=== PATIENT | female | born 1970 | race Caucasian/White ===

== ENCOUNTER → 2016-07-01 | Outpatient (CLI) | payer OTHER ==
--- NOTE | 2016-07-01 14:01 | KCIC ---
PROCEDURE Bilateral digital screening mammogram. HISTORY 46-year-old female presents for screening mammography. TECHNIQUE Full field digital craniocaudal and mediolateral oblique views of both breasts are obtained. Computer-aided detection is applied. COMPARISON 10/27/2011 FINDINGS Breast parenchymal composition: Level D - Extremely dense. There is a circumscribed mass within the sellae inferior aspect of the right breast on the mediolateral oblique view likely a cyst which is more conspicuous compared to the prior study due to prior surrounding breast parenchyma. There benign-appearing calcifications within both breasts. There is no architectural distortion. IMPRESSION BI-RADS Category 0: Needs additional imaging. Further evaluation with a right breast sonogram targeted to the anterior slightly inferior breast to assess a circumscribed density most suggestive of a cyst is recommended. This is likely more conspicuous compared to the prior study due to prior surrounding breast parenchyma. The patient will be contacted to return for additional imaging. Mammography is not 100% sensitive in detecting breast cancer. Therefore, a self breast exam and a clinical breast exam are very important. A negative mammogram does not negate a clinically suspicious finding and should not result in a delay in biopsying a clinically suspicious abnormality. Electronically signed by: Daniella Gardner (Jul 01, 2016 14:00:13)
== END | disposition home or self-care (01) ==
LOC: KCIC MAMMO 12:40
PROVIDERS: ATTEND Specialist
DX: Z12.31 Encounter for screening mammogram for malignant neoplasm of breast (principal)
CPT/HCPCS: G0202; 77067

== ENCOUNTER → 2016-07-08 | Outpatient (CLI) | payer OTHER ==
--- NOTE | 2016-07-08 21:40 | KCIC ---
Right breast ultrasound: Reason for examination: Nodule on right breast ultrasound. Comparison is made to mammographic examination dated 07/01/2016. Ultrasound examination of the right breast was performed. In the 3 o'clock position 4 centimeters from the nipple, there is a 10 x 7 millimeter lesion which is well-circumscribed and shows posterior acoustic enhancement consistent with a small cyst. In the 2:30 position 5 centimeters from the nipple, there is a small hypoechoic lesion measuring 7.7 by 5.9 millimeters in size which may represent a complicated cyst. There are dilated ducts in the retroareolar position. In the 7 o'clock position 4 centimeters from the nipple, there is a small 4.5 millimeter hypoechoic lesion which has appearance with fibrocystic change. In the 10 o'clock position 6 centimeters from the nipple, there is a 6.1 millimeter hypoechoic circumscribed lesion consistent with a complicated cyst. In the 12 o'clock position 3 centimeters from the nipple, there is a 5 millimeter hypoechoic lesion with some posterior acoustic enhancement consistent with a complicated cyst. No abnormal appearing lymph nodes are seen in the axilla. Impression: Multiple anechoic and hypoechoic lesions consistent with simple and complicated cysts. No suspicious lesions seen. Recommend 6 month sonographic followup. BI-RADS category 3: Probably benign. This patient's information has been entered into a reminder system for the patient to be notified with the results of this examination and a target date for her next mammograms. Electronically signed by: Clotilde Middleton MD (Jul 08, 2016 21:38:56)
== END | disposition home or self-care (01) ==
LOC: KCIC US 12:49
PROVIDERS: ATTEND Specialist
DX: N63 Unspecified lump in breast (principal)
CPT/HCPCS: 76641

== ENCOUNTER → 2017-08-26 | Outpatient (CLI) | payer OTHER | END | disposition home or self-care (01) | LOC: KCIC MAMMO 12:44 | DX: R92.1 Mammographic calcification found on diagnostic imaging of breast (principal) | CPT/HCPCS: 76641; 77066 ==